=== PATIENT | female | born 1970 | race Caucasian/White ===

== ENCOUNTER 2024-05-12 15:08 | Outpatient (AMB) | payer OTHER, SELFPAY ==
[2024-05-12 15:24] VITALS: BP 140/90; PULSE 98; O2SAT 100; BMI 37.4
--- NOTE | 2024-05-12 15:24 | HO.NEPHOV_ITS ---
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 She was diagnosed with hypertension at the age of 45.. She has history of left hearing loss. She has been on losartan as well as amlodipine. Her blood pressure continues to be labile. She denies any uncontrolled thyroid disorders, hypokalemia, renal dysfunction, palpitation, orthostatic drop in blood pressure, proteinuria, microscopic hematuria, history of diagnosed sleep apnea. She claims to be compliant with her medications. Her exercise is limited. She goes on and off weight watchers. She has no history of any peripheral arterial disease, renal artery stenosis, carotid stenosis, coronary artery disease, congestive heart failure, CVA. She denies any chest pain, shortness of breath, pedal edema. She has a normal diet. She does not have any headache, visual disturbance, weakness. There were no other new active complaints at the time of this office visit. [facility] Medical History (Updated 05/12/24 @ 16:01 by Pedro Abdul MD) Venous insufficiency Hearing loss in left ear Colon polyp Essential (primary) hypertension Surgical History History of Achilles tendon repair H/O colonoscopy Family History Mother Hypertension Father Diabetes mellitus Hypertension Social History Alcohol intake: current Patient Tobacco Use Status: Never used Tobacco Review of Systems Const All systems reviewed & are unremarkable except as noted in HPI and below Physical Exam Vital Signs: Last Vital Signs Pulse 98 05/12/24 15:24 BP 140/90 H 05/12/24 15:24 Pulse Ox 100 05/12/24 15:24 Oxygen Delivery Method Room Air 05/12/24 15:24 BMI result Body Mass Index 37.4 Const General: comfortable and no acute distress Orientation/consciousness: patient oriented x3 HEENT Head: Yes normocephalic Mouth: Normal oral and palatal mucosa present Eyes EOM: EOMs intact bilaterally Neck Neck: Yes supple Resp Auscultation: clear to auscultation bilaterally Cardio Jugular venous distension: no JVD Rate: regular rate GI Palpation (GI): Soft to palpation Auscultation: normal bowel sounds General: Yes no CVA tenderness Back/Spine/Pelvis Back: no CVA tenderness Skin General skin exam: no rashes or lesions noted Neuro General: patient oriented x3 and moves all extremities Extrem General: Yes no pedal edema Results Reviewed Nephrology Results: No Data to Display Assessment & Plan Assessment & Plan (1) Essential (primary) hypertension: Code(s): I10 - Essential (primary) hypertension Category: Medical Plan Briana was diagnosed with hypertension at the age of 45. She has no renal dysfu nction or history of hypokalemia. She claims to be compliant with the medications. She is currently on amlodipine 5 mg daily as well as losartan 50 mg b.i.d. Her blood pressure is still not at goal. I ordered renin, aldosterone, cortisol, thyroid function and metanephrines. I may do a Doppler of her renal arteries as well as 24 hour ambulatory blood pressure monitor based on evolving data. I plan to optimize her medications in the next subsequent visits. She will benefit from low-sodium diet and lifestyle modifications. She is not known to have any proteinuria, retinopathy, left ventricular hypertrophy, renal or cardiac dysfunction. All these have been explained in detail. Answered all questions. Further management is pending evolving data. Orders: Orders Aldosterone 05/12/24 I10 - Essential (primary) hypertension Aldost/Renin 05/12/24 I10 - Essential (primary) hypertension Renin 05/12/24 I10 - Essential (primary) hypertension Cortisol Random 05/12/24 I10 - Essential (primary) hypertension Metanephrines, Plasma 05/12/24 I10 - Essential (primary) hypertension TSH reflex Free T4 05/12/24 I10 - Essential (primary) hypertension Coding Level of Care Code New Pt Level 4 (88279) Diagnoses Essential (primary) hypertension I10
== END 2024-05-12 16:08 | disposition home or self-care (01) ==
PROVIDERS: PCP Family Medicine; Visit Provider Internal Medicine Nephrology
DX: I10 Essential (primary) hypertension (principal)
CPT/HCPCS: 99204

== ENCOUNTER → 2024-05-12 15:08 | Outpatient (BNVA) | payer OTHER, SELFPAY | PROVIDERS: PCP Family Medicine; Visit Provider Internal Medicine Nephrology ==

== ENCOUNTER 2024-07-02 15:11 | Outpatient (AMB) | payer OTHER, SELFPAY ==
--- NOTE | 2024-07-02 15:48 | HO.NEPHOV_ITS ---
Vital Signs 07/02/24 15:52 Height 5 ft 7 in Weight 239 lb BMI 37.4 BP 140/90 H Blood Pressure Location Rt brachial Position Sitting Pulse 101 H Pulse Source Pulse Oximeter Pulse Oximetry (%) 98 Oxygen Delivery Method Room Air Intake Visit Reasons: 1 month f/u/ Conf Tube Filler Required: No Accompanied by: Self / Same As Patient Allergies ibuprofen Allergy (Verified 07/02/24 15:54) Swelling HPI Comments Details: I had the pleasure of seeing Briana in follow up for labile hypertension. She was diagnosed with hypertension at the age of 45.. She has history of left hearing loss. She has been on losartan as well as amlodipine. Her blood pressure continues to be labile. She denies any uncontrolled thyroid disorders, hypokalemia, renal dysfunction, palpitation, orthostatic drop in blood pressure, proteinuria, microscopic hematuria, history of diagnosed sleep apnea. She claims to be compliant with her medications. Her exercise is limited. She goes on and off weight watchers. She has no history of any peripheral arterial disease, renal artery stenosis, carotid stenosis, coronary artery disease, congestive heart failure, CVA. She denies any chest pain, shortness of breath, pedal edema. She has a normal diet. She does not have any headache, visual disturbance, weakness. There were no other new active complaints at the time of this office visit. [facility], [facility] Medical History (Updated 05/12/24 @ 16:01 by Pedro Abdul MD) Venous insufficiency Hearing loss in left ear Colon polyp Essential (primary) hypertension Surgical History History of Achilles tendon repair H/O colonoscopy Family History Mother Hypertension Father Diabetes mellitus Hypertension Social History Alcohol intake: current Patient Tobacco Use Status: Never used Tobacco Physical Exam Vital Signs: Last Vital Signs Pulse 101 H 07/02/24 15:52 BP 140/90 H 07/02/24 15:52 Pulse Ox 98 07/02/24 15:52 Oxygen Delivery Method Room Air 07/02/24 15:52 BMI result Body Mass Index 37.4 Const General: comfortable and no acute distress Orientation/consciousness: patient oriented x3 HEENT Head: Yes normocephalic Mouth: Normal oral and palatal mucosa present Eyes EOM: EOMs intact bilaterally Neck Neck: Yes supple Resp Auscultation: clear to auscultation bilaterally Cardio Jugular venous distension: no JVD Rate: regular rate GI Palpation (GI): Soft to palpation Auscultation: normal bowel sounds General: Yes no CVA tenderness Back/Spine/Pelvis Back: no CVA tenderness Skin General skin exam: no rashes or lesions noted Neuro General: patient oriented x3 and moves all extremities Extrem General: Yes no pedal edema Results Reviewed Nephrology Results: No Data to Display Assessment & Plan Assessment & Plan (1) Essential (primary) hypertension: Code(s): I10 - Essential (primary) hypertension Category: Medical Plan Briana was diagnosed with hypertension at the age of 45. She has no renal dysfunction or history of hypokalemia. She claims to be compliant with the medications. She is currently on amlodipine 5 mg daily as well as losartan 50 mg b.i.d. Her blood pressure is still not at goal. W/U including renin, and metanephrines are pending. I may do a Doppler of her renal arteries . I ordered 24 hour ambulatory blood pressure monitor . I plan to optimize her medications in the next subsequent visits. She will benefit from low-sodium diet and lifestyle modifications. She is not known to have any proteinuria, retinopathy, left ventricular hypertrophy, renal or cardiac dysfunction. All these have been explained in detail. Answered all questions. Further management is pending evolving data. Orders: Orders AMB 24 HR B/P Monitor PLACEMENT Today I10 - Essential (primary) hypertension Coding Level of Care Code Est Pt Level 4 (20305) Diagnoses Essential (primary) hypertension I10
[2024-07-02 15:52] VITALS: BP 140/90; PULSE 101; O2SAT 98; BMI 37.4
== END 2024-07-02 16:20 | disposition home or self-care (01) ==
PROVIDERS: PCP Family Medicine; Visit Provider Internal Medicine Nephrology
DX: I10 Essential (primary) hypertension (principal)
CPT/HCPCS: 99214

== ENCOUNTER → 2024-07-02 15:11 | Outpatient (BNVA) | payer OTHER, SELFPAY | PROVIDERS: PCP Family Medicine; Visit Provider Internal Medicine Nephrology ==

== ENCOUNTER → 2024-07-16 08:57 | Outpatient (BNVA) | payer OTHER, SELFPAY | PROVIDERS: PCP Family Medicine; Visit Provider Internal Medicine Nephrology ==

== ENCOUNTER → 2024-07-17 09:05 | Outpatient (BNVA) | payer OTHER, SELFPAY | PROVIDERS: PCP Family Medicine; Visit Provider Internal Medicine Nephrology ==

== ENCOUNTER 2024-07-23 11:25 | Outpatient (AMB) | payer OTHER, SELFPAY ==
--- NOTE | 2024-07-23 11:32 | HO.NEPHOV_ITS ---
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 She was diagnosed with hypertension at the age of 45.. She has history of left hearing loss. She has been on losartan as well as amlodipine. Her blood pressure continues to be labile but better. She denies any uncontrolled thyroid disorders, hypokalemia, renal dysfunction, palpitation, orthostatic drop in blood pressure, proteinuria, microscopic hematuria, history of diagnosed sleep apnea. She claims to be compliant with her medications. Her exercise is limited. She goes on and off weight watchers. She has no history of any peripheral arterial disease, renal artery stenosis, carotid stenosis, coronary artery disease, congestive heart failure, CVA. She denies any chest pain, shortness of breath, pedal edema. She has a normal diet. She does not have any headache, visual disturbance, weakness. She had 24 hour BPM which showed reasonably controlled BP but not optimal. She is concerned about edema with Amlodipine. She is going to see a criminal judge next week. There were no other new active complaints at the time of this office visit. [facility] Medical History (Updated 05/12/24 @ 16:01 by Pedro Abdul MD) Venous insufficiency Hearing loss in left ear Colon polyp Essential (primary) hypertension Surgical History History of Achilles tendon repair H/O colonoscopy Family History Mother Hypertension Father Diabetes mellitus Hypertension Social History Alcohol intake: current Patient Tobacco Use Status: Never used Tobacco Review of Systems Const All systems reviewed & are unremarkable except as noted in HPI and below Physical Exam Vital Signs: Last Vital Signs Pulse 92 07/23/24 11:33 BP 130/90 H 07/23/24 11:33 Pulse Ox 99 07/23/24 11:33 Oxygen Delivery Method Room Air 07/23/24 11:33 BMI result Body Mass Index 37.5 Const General: comfortable and no acute distress Orientation/consciousness: patient oriented x3 HEENT Head: Yes normocephalic Mouth: Normal oral and palatal mucosa present Eyes EOM: EOMs intact bilaterally Neck Neck: Yes supple Resp Auscultation: clear to auscultation bilaterally Cardio Jugular venous distension: no JVD Rate: regular rate GI Palpation (GI): Soft to palpation Auscultation: normal bowel sounds General: Yes no CVA tenderness Back/Spine/Pelvis Back: no CVA tenderness Skin General skin exam: no rashes or lesions noted Neuro General: patient oriented x3 and moves all extremities Extrem General: Yes no pedal edema Results Reviewed Nephrology Results: No Data to Display Assessment & Plan Assessment & Plan (1) Essential (primary) hypertension: Code(s): I10 - Essential (primary) hypertension Category: Medical Plan Briana was diagnosed with hypertension at the age of 45. She has no renal dysfunction or history of hypokalemia. She claims to be compliant with the medications. Her 24 hour BPM results were reviewed. She wanted to try ACEI . She is currently on amlodipine 5 mg daily as well as losartan 50 mg b.i.d. I switched her to lisinopril 40 mg daily along with Chlorthalidone 25 mg daily. W/U including renin, and metanephrines were reviewed. I plan to optimize her medications in the next subsequent visits. She will benefit from low-sodium diet and lifestyle modifications. She is not known to have any proteinuria, retinopathy, left ventricular hypertrophy, renal or cardiac dysfunction. All these have been explained in detail. Answered all questions. Further management is pending evolving data Medications: New lisinopril 40 mg PO DAILY 90 days 90 tabs 1RF chlorthalidone Discontinued Amlodipine 25 mg PO DAILY 90 days 90 tabs 1RF Coding Level of Care Code Est Pt Level 4 (77805) Diagnoses Essential (primary) hypertension I10
[2024-07-23 11:33] VITALS: BP 130/90; PULSE 92; O2SAT 99; BMI 37.5
== END 2024-07-23 12:11 | disposition home or self-care (01) ==
PROVIDERS: PCP Family Medicine; Visit Provider Internal Medicine Nephrology
DX: I10 Essential (primary) hypertension (principal)
CPT/HCPCS: 93790; 99214

== ENCOUNTER → 2024-07-23 11:25 | Outpatient (BNVA) | payer OTHER, SELFPAY | PROVIDERS: PCP Family Medicine; Visit Provider Internal Medicine Nephrology ==

== ENCOUNTER 2024-10-29 15:29 | Outpatient (AMB) | payer OTHER, SELFPAY ==
--- NOTE | 2024-10-29 16:02 | HO.NEPHOV ---
Vital Signs 10/29/24 16:03 Height 5 ft 7 in Weight 227 lb 6 oz BMI 35.6 BP 102/70 Blood Pressure Location Lt brachial Position Sitting Pulse 97 Pulse Source Pulse Oximeter Pulse Oximetry (%) 99 Oxygen Delivery Method Room Air Intake Visit Reasons: 3 mon follow up -Conf Aviation Manager Required: No Accompanied by: Self / Same As Patient Allergies ibuprofen Allergy (Verified 10/29/24 16:03) Swelling HPI Comments Details: Briana was seen in follow up for hypertension. She was diagnosed with hypertension at the age of 45.. She has history of left hearing loss. She denies any uncontrolled thyroid disorders, hypokalemia, renal dysfunction, palpitation, orthostatic drop in blood pressure, proteinuria, microscopic hematuria, history of diagnosed sleep apnea. She has no history of any peripheral arterial disease, renal artery stenosis, carotid stenosis, coronary artery disease, congestive heart failure, CVA. She denies any chest pain, shortness of breath, pedal edema. She has a normal diet. She does not have any headache, visual disturbance, weakness. She has seen a fleet service manager & is exercising as well & is successful in losing some weight. With lisinopril and Chlorthalidone, she had episodes of very low BP's intermittently . She stopped her Chlorthalidone at that time but has been taking it only intermittently. There were no other new active complaints at the time of this office visit [facility] Medical History (Updated 05/12/24 @ 16:01 by Pedro Abdul MD) Venous insufficiency Hearing loss in left ear Colon polyp Essential (primary) hypertension Surgical History History of Achilles tendon repair H/O colonoscopy Family History Mother Hypertension Father Diabetes mellitus Hypertension Social History Alcohol intake: current Patient Tobacco Use Status: Never used Tobacco Review of Systems Const All systems reviewed & are unremarkable except as noted in HPI and below Physical Exam Vital Signs: Last Vital Signs Pulse 97 10/29/24 16:03 BP 102/70 10/29/24 16:03 Pulse Ox 99 10/29/24 16:03 Oxygen Delivery Method Room Air 10/29/24 16:03 BMI result Body Mass Index 35.6 Const General: comfortable and no acute distress Orientation/consciousness: patient oriented x3 HEENT Head: Yes normocephalic Mouth: Normal oral and palatal mucosa present Eyes EOM: EOMs intact bilaterally Neck Neck: Yes supple Resp Auscultation: clear to auscultation bilaterally Cardio Jugular venous distension: no JVD Rate: regular rate GI Palpation (GI): Soft to palpation Auscultation: normal bowel sounds General: Yes no CVA tenderness Back/Spine/Pelvis Back: no CVA tenderness Skin General skin exam: no rashes or lesions noted Neuro General: patient oriented x3 and moves all extremities Extrem General: Yes no pedal edema Results Reviewed Nephrology Results: No Data to Display Assessment & Plan Assessment & Plan (1) Essential (primary) hypertension: Code(s): I10 - Essential (primary) hypertension Category: Medical Plan Brinaa was diagnosed with hypertension at the age of 45. She has no renal dysfunction or history of hypokalemia. She claims to be compliant with the medications. I asked her to take lisinopril 20 mg twice daily along with Chlorthalidone 25 mg daily in the morning. I plan to cut back on her ACEI if she still gets low BP's while she is losing weight and keeping up with life style modifications. She is not known to have any proteinuria, retinopathy, left ventricular hypertrophy, renal or cardiac dysfunction. All these have been explained in detail. Answered all questions. Orders: Orders Electrolytes 1 Month I10 - Essential (primary) hypertension Creatinine 1 Month I10 - Essential (primary) hypertension Calcium 1 Month I10 - Essential (primary) hypertension Blood Urea Nitrogen 1 Month I10 - Essential (primary) hypertension Coding Level of Care Code Est Pt Level 4 (21342) Diagnoses Essential (primary) hypertension I10
[2024-10-29 16:03] VITALS: BP 102/70; PULSE 97; O2SAT 99; BMI 35.6
== END 2024-10-29 16:23 | disposition home or self-care (01) ==
PROVIDERS: PCP Family Medicine; Visit Provider Internal Medicine Nephrology
DX: I10 Essential (primary) hypertension (principal)
CPT/HCPCS: 99214

== ENCOUNTER → 2024-10-29 15:29 | Outpatient (BNVA) | payer OTHER, SELFPAY | PROVIDERS: PCP Family Medicine; Visit Provider Internal Medicine Nephrology ==

== ENCOUNTER 2024-11-20 11:46 | Outpatient (REF) | payer OTHER, SELFPAY ==
[2024-11-20 14:37] LABS: Anion Gap 11 (12-20); Blood Urea Nitrogen 12 mg/dL (9-16); Calcium 9.8 mg/dL (8.4-10.2); Carbon Dioxide 28 mmol/L (22-29); Chloride 105 mmol/L (96-108); Estimated Glomerular Filt Rate > 60; Potassium 3.9 mmol/L (3.3-5.1); Sodium 140 mmol/L (135-145)
== END 2024-11-20 11:47 | disposition home or self-care (01) ==
LOC: HO.WFDLDS 11:46
PROVIDERS: Visit Provider Internal Medicine Nephrology
DX: I10 Essential (primary) hypertension (principal)
CPT/HCPCS: 36415; 80051; 82310; 82565; 84520

== ENCOUNTER 2024-11-23 09:28 | Outpatient (AMB) | payer OTHER, SELFPAY ==
--- NOTE | 2024-11-23 09:30 | HO.NEPHOV_ITS ---
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 She was diagnosed with hypertension at the age of 45.. She has history of left hearing loss. She denies any uncontrolled thyroid disorders, hypokalemia, renal dysfunction, palpitation, orthostatic drop in blood pressure, proteinuria, microscopic hematuria, history of diagnosed sleep apnea. She has no history of any peripheral arterial disease, renal artery stenosis, carotid stenosis, coronary artery disease, congestive heart failure, CVA. She denies any chest pain, shortness of breath, pedal edema. She has a normal diet. She does not have any headache, visual disturbance, weakness. She has seen a campus director & is exercising as well & is successful in losing some weight. With lisinopril and Chlorthalidone, she had episodes of very low BP's intermittently . She stopped her Chlorthalidone at that time but has been taking it only intermittently. There were no other new active complaints at the time of this office visit COUNT INCLUDES [facility] Medical History (Updated 05/12/24 @ 16:01 by Pedro Abdul MD) Venous insufficiency Hearing loss in left ear Colon polyp Essential (primary) hypertension Surgical History History of Achilles tendon repair H/O colonoscopy Family History Mother Hypertension Father Diabetes mellitus Hypertension Social History Alcohol intake: current Patient Tobacco Use Status: Never used Tobacco Review of Systems Const All systems reviewed & are unremarkable except as noted in HPI and below Physical Exam Vital Signs: Last Vital Signs Pulse 80 11/23/24 09:31 BP 120/70 11/23/24 09:31 Pulse Ox 100 11/23/24 09:31 Oxygen Delivery Method Room Air 11/23/24 09:31 BMI result Body Mass Index 35.8 Const General: comfortable and no acute distress Orientation/consciousness: patient oriented x3 HEENT Head: Yes normocephalic Mouth: Normal oral and palatal mucosa present Eyes EOM: EOMs intact bilaterally Neck Neck: Yes supple Resp Auscultation: clear to auscultation bilaterally Cardio Jugular venous distension: no JVD Rate: regular rate GI Palpation (GI): Soft to palpation Auscultation: normal bowel sounds General: Yes no CVA tenderness Back/Spine/Pelvis Back: no CVA tenderness Skin General skin exam: no rashes or lesions noted Neuro General: patient oriented x3 and moves all extremities Extrem General: Yes no pedal edema Results Reviewed Nephrology Results: Sodium 140 mmol/L (135-145) 11/20/24 Potassium 3.9 mmol/L (3.3-5.1) 11/20/24 Chloride 105 mmol/L (96-108) 11/20/24 Carbon Dioxide 28 mmol/L (22-29) 11/20/24 BUN 12 mg/dL (9-16) 11/20/24 Creatinine 0.80 mg/dL (0.5-1.4) 11/20/24 Calcium 9.8 mg/dL (8.4-10.2) 11/20/24 Assessment & Plan Assessment & Plan (1) Essential (primary) hypertension: Code(s): I10 - Essential (primary) hypertension Category: Medical Plan Briana was diagnosed with hypertension at the age of 45. She has no renal dysfunction or history of hypokalemia. She claims to be compliant with the medications. I asked her to take lisinopril 10 mg twice daily along with Chlorthalidone 25 mg daily in the morning. I plan to cut back on her ACEI further if she still gets low BP's while she is losing weight and keeping up with life style modifications. She is not known to have any proteinuria, retinopathy, left ventricular hypertrophy, renal or cardiac dysfunction. All these have been explained in detail. Answered all questions. Coding Level of Care Code Est Pt Level 4 (00844) Diagnoses Essential (primary) hypertension I10
[2024-11-23 09:31] VITALS: BP 120/70; PULSE 80; O2SAT 100; BMI 35.8
== END 2024-11-23 09:48 | disposition home or self-care (01) ==
PROVIDERS: PCP Family Medicine; Visit Provider Internal Medicine Nephrology
DX: I10 Essential (primary) hypertension (principal)
CPT/HCPCS: 99214

== ENCOUNTER → 2024-11-23 09:28 | Outpatient (BNVA) | payer OTHER, SELFPAY | PROVIDERS: PCP Family Medicine; Visit Provider Internal Medicine Nephrology ==

== ENCOUNTER 2025-03-15 12:17 | Outpatient (AMB) | payer OTHER, SELFPAY ==
--- NOTE | 2025-03-15 12:21 | HO.NEPHOV ---
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 She was diagnosed with hypertension at the age of 45. She has history of left hearing loss. She denies any uncontrolled thyroid disorders, hypokalemia, renal dysfunction, palpitation, orthostatic drop in blood pressure, proteinuria, microscopic hematuria, history of diagnosed sleep apnea. She has no history of any peripheral arterial disease, renal artery stenosis, carotid stenosis, coronary artery disease, congestive heart failure, CVA. She denies any chest pain, shortness of breath, pedal edema. She has a normal diet. She does not have any headache, visual disturbance, weakness. She has seen a reshipping clerk & is exercising as well & is successful in losing some weight. There were no other new active complaints at the time of this office visit REPLACED BY [facility] Medical History (Updated 05/12/24 @ 16:01 by Pedro Abdul MD) Venous insufficiency Hearing loss in left ear Colon polyp Essential (primary) hypertension Surgical History History of Achilles tendon repair H/O colonoscopy Family History Mother Hypertension Father Diabetes mellitus Hypertension Social History Alcohol intake: current Patient Tobacco Use Status: Never used Tobacco Review of Systems Const All systems reviewed & are unremarkable except as noted in HPI and below Physical Exam Vital Signs: Last Vital Signs Pulse 92 03/15/25 12:22 BP 114/70 03/15/25 12:22 Pulse Ox 100 03/15/25 12:22 Oxygen Delivery Method Room Air 03/15/25 12:22 BMI result Body Mass Index 34.5 Const General: comfortable and no acute distress Orientation/consciousness: patient oriented x3 HEENT Head: Yes normocephalic Mouth: Normal oral and palatal mucosa present Eyes EOM: EOMs intact bilaterally Neck Neck: Yes supple Resp Auscultation: clear to auscultation bilaterally Cardio Jugular venous distension: no JVD Rate: regular rate GI Palpation (GI): Soft to palpation Auscultation: normal bowel sounds General: Yes no CVA tenderness Back/Spine/Pelvis Back: no CVA tenderness Skin General skin exam: no rashes or lesions noted Neuro General: patient oriented x3 and moves all extremities Extrem General: Yes no pedal edema Results Reviewed Nephrology Results: Sodium 140 mmol/L (135-145) 11/20/24 Potassium 3.9 mmol/L (3.3-5.1) 11/20/24 Chloride 105 mmol/L (96-108) 11/20/24 Carbon Dioxide 28 mmol/L (22-29) 11/20/24 BUN 12 mg/dL (9-16) 11/20/24 Creatinine 0.80 mg/dL (0.5-1.4) 11/20/24 Calcium 9.8 mg/dL (8.4-10.2) 11/20/24 Assessment & Plan Assessment & Plan (1) Essential (primary) hypertension: Code(s): I10 - Essential (primary) hypertension Category: Medical Plan Briana was diagnosed with hypertension at the age of 45. She has no renal dysfunction or history of hypokalemia. She claims to be compliant with the medications. I asked her to continue lisinopril 10 mg twice daily along with Chlorthalidone 25 mg daily in the morning. I plan to cut back on her chlorthalidone further if she still gets low BP's while she is losing weight and keeping up with life style modifications. She is not known to have any proteinuria, retinopathy, left ventricular hypertrophy, renal or cardiac dysfunction. All these have been explained in detail. Answered all questions Orders: Orders Blood Urea Nitrogen 6 Months I10 - Essential (primary) hypertension Calcium 6 Months I10 - Essential (primary) hypertension Creatinine 6 Months I10 - Essential (primary) hypertension Electrolytes 6 Months I10 - Essential (primary) hypertension Coding Level of Care Code Est Pt Level 4 (16033) Diagnoses Essential (primary) hypertension I10
[2025-03-15 12:22] VITALS: BP 114/70; PULSE 92; O2SAT 100; BMI 34.5
== END 2025-03-15 12:36 | disposition home or self-care (01) ==
LOC: HO.HKA 12:17
PROVIDERS: PCP Family Medicine; Visit Provider Internal Medicine Nephrology
DX: I10 Essential (primary) hypertension (principal)
CPT/HCPCS: 99214

== ENCOUNTER 2025-10-13 14:07 | Outpatient (REF) | payer OTHER, SELFPAY ==
--- OUTSIDE RECORDS SUMMARY | 2025-10-13 17:08 | XMS_ITS | Data Portability ---
Author Organization [place] - [facility], Allergy Address [address] [address] Care Team Providers Care Circle Saw Operator Name Role Phone CRISTA POPE Primary Care Provider [phone] Assessment No assessment recorded. Plan of Treatment Reminders Order Date Submit Date Provider Last Modified By Organization Details Last Modified Time Details Appointments None record ed. Lab None record ed. Referral None record ed. Procedures None record ed. Surgeries None record ed. Imaging None record ed. Medication Orders None record ed. Patient TargetsNo targets recorded. Patient InstructionsNo instructions recorded. Reason for Referral None Reported. Problems Name Problem SNOMED Code Status Onset Date Resolution Date Notes Provider Name and Address Organization Details Recorded Time Sudden idiopathi c hearing loss 234310173 Active 2017 Sudden idiopathi c hearing loss, left ear; Note: Date Diagnosed : 09/19/2018 11:29 AM (H91.22) Not Available [facility] 4 02:25:30 Dizziness and giddiness 955421673 Active 2017 Dizziness and giddiness ; Note: Date Diagnosed : 09/19/2018 11:29 AM (R42) Not Available [facility] 4 02:25:17 Sensorine ural hearing loss 57269663 Active 2017 Sensorine ural hearing loss, unilatera l, left ear, with unrestric jp hearing on the contralat eral side; Note: Date Diagnosed : 09/19/2018 11:29 AM (H90.42) Not Available [facility] 4 02:25:17 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 - [facility] 5 15:27:58 Drug therapy finding 466597726 Active 2024 RANJEET GRAHAM MD [address] [place] [address], [place], [address] , [facility] - [facility] 5 15:28:04 Swelling of salivary gland 365517273 Active 2024 RANJEET GRAHAM MD [address] [place] [address], [place], [address] , [facility] 5 15:30:04 Problem Notes None recorded. Procedures Surgical History Date Name Laterality Status Provider Name and Address Organization Details Recorded Time 04/16/2025 FFL_RE completed RANJEET GRAHAM MD [address] [place] [address],[place] [address], [place], [address], [facility] - [facility] 04/16/2025 15:20:41 Imaging Results None recorded. Procedure Notes None recorded. Medical Equipment None Reported. Allergies Allergen ID Allergen Name Allergen Category Reaction Reaction Severity Criticality Documentation Date Start Date Code Code System Note Provider Name and Address Organization Details Recorded Time 74830 ibuprofen medicatio n other Not available Not available 03/31/2024 5640 RxNorm React ion: unkno wn, chadwickpe flip d;; Not Available [facility] 4 00:57:42 Medications Name Sig Start Date Stop Date Status Note LastModified by Organization Details LastModified Time losartan 50 mg tablet TAKE 1 TABLET BY MOUTH TWICE A DAY active Not Available Not Available No t Available prednison e 10 mg tablet 2017 active Medicati on ID: [id number] P rescribe d By Name: Júnior Faye nd Name: predniso ne Send Method: E-Prescr ibed Sub s Allowed: subs OK Specmichelle al Instruct ion: 6 tabs daily for 9 days then taper As directed Medicat ionGener icName: predniso ne Not Available Not Available Not Available Ativan 1 mg tablet 1 tablet by mouth 2017 active Medicati on ID: [id number] D uration Value: 2 Prescri bed By Name: Júnior Faye nd Name: Ativan S end Method: E-Prescr ibed Sub s Allowed: subs ROBE Specmichelle al Instruct ion: Take 1 hour prior to procedur e Medica tionGene ricName: Ativan Not Available Not Available Not Available chlorthal idone 25 mg tablet TAKE 1 TABLET BY MOUTH DAILY active Not Available Not Available No t Available amlodipin e 5 mg tablet TAKE 1 TABLET BY MOUTH EVERY DAY active Not Available Not Available No t Available meclizine 25 mg tablet 2017 active Medicati on ID: [id number] D uration Value: 10 Brand Name: meclizin e Send Method: E-Prescr ibed Sub s Allowed: subs ROBE Speci al Instruct ion: TAKE 1 TABLET BY MOUTH THREE TIMES A DAY NEEDED Jf Emanuelamoric Name: meclizin e Not Available Not Available Not Available lisinopri l 10 mg tablet TAKE 1 TABLET BY MOUTH TWICE A DAY active Not Available Not Available No t Available lisinopri l 40 mg tablet TAKE 1 TABLET BY MOUTH DAILY active Not Available Not Available No t Available losartan 100 mg tablet 2017 active Medicati on ID: [id number] D uration Value: 30 Brand Name: losartan Send Method: E-Prescr ibed Sub s Allowed: subs OK Medic ationGen ericName : losartan Not Available Not Available Not Available amoxicill in 875 mg-potass ium clavulana te 125 mg tablet 09/19 completed Medicati on ID: [id number] D uration Value: 7 Brand Name: amoxicil baljeet-pot clavulan ate Send Method: E-Prescr ibed Sub s Allowed: subs OK Medic ationGen ericName : amoxicil baljeet-pot clavulan ate Not Available Not Available Not Available Wegovy 2.4 mg/0.75 mL subcutane ous pen injector INJECT 2.4 MG SUBCUTAN EOUSLY EVERY WEEK IN THE ABDOMEN, THIGH, OR UPPER ARM active Not Available Not Available No t Available Wegovy 1.7 mg/0.75 mL subcutane ous pen injector INJECT 1.7 MG SUBCUTAN EOUSLY EVERY WEEK active Not Available Not Available No t Available Wegovy 1 mg/0.5 mL subcutane ous pen injector INJECT 1 MG SUBCUTAN EOUSLY INTO THE ABDOMEN, THIGH, OR UPPER ARM EVERY WEEK active Not Available Not Available No t Available Wegovy 0.25 mg/0.5 mL subcutane ous pen injector INJECT 0.25 MG SUBCUTAN EOUSLY EVERY WEEK FOR 4 WEEKS*IN THE ABDOMEN, THIGH, OR UPPER ARM active Not Available Not Available No t Available Wegovy 0.5 mg/0.5 mL subcutane ous pen injector INJECT 0.5 MG SUBCUTAN EOUSLY EVERY WEEK FOR 4 WEEKS*IN THE ABDOMEN, THIGH, OR UPPER ARM active Not Available Not Available No t Available Zepbound 5 mg/0.5 mL subcutane ous pen injector INJECT 1 PEN SUBCUTAN EOUSLY ONCE WEEKLY ROTATING INJECTIO N SITES active Not Available Not Available No t Available Zepbound 2.5 mg/0.5 mL subcutane ous pen injector INJECT 2.5 MG SUBCUTAN EOUSLY EVERY WEEK, ROTATE INJECTIO N SITES active Not Available Not Available No t Available Vitals None Recorded Social History None recorded. Functional Status None recorded. Mental Status None recorded. Family History Nothing Reported. Medical History No medical history recorded. Gynecological HistoryNo gynecological history recorded. Obstetrics History GPAL:G 0 P 0 0 0 0 Past Encounters Encounter ID Performer Location Encounter Start Date Encounter Closed Date Diagnosis/Indication Diagnosis SNOMED-CT Code Diagnosis ICD10 Code Diagnosis IMO Codes Diagnosis Note [id number] RANJEET GRAHAM MD [facility] on [address] [place] [address] 04/16/2025 14:43:19 04/16/2025 15:27:00 Acute sialoadenitis [id number] K11.21 7497309 see below Drug therapy finding 309 [id number] T88.7XXA 1213765 The timing seems to coincide with when she began Zepbound. I discussed the option of stopping the medication . I also discussed improved hydration for her salivary glands. I did not see any pathology on laryngosco py and did not feel any on exam. Her submandibu lar glands may be mildly enlarged. I gave reassuranc e. I told her that this seems not like an allergy to the medication as this has been very gradual and chronic over the past 3 weeks rather than acute. I asked her to call for follow-up if the symptoms worsen. She could also discuss with her doctor stopping the Zepbound. Swelling o f salivary gland [id number] R60.0 204992 see above Health Concerns Section Related Observation LastModified by Organization Detai ls LastModified Time None Recorded Concern Status LastModified by Organization Details LastModified Time None Recorded Advance Directives Directive None Recorded Payers Insurance Date Sequence Insurance Name Policy Number Policy Viera Covered Member ID Viera Member ID Guarantor Name 05/26/2025 1 [facility] [id number] Briana Jeffries [id number] 1 [id number] Briana Jeffries Notes Date Note Type Note Provider Name and Address Organization Details Recorded Time 04/16/2025 text/html ROS as noted in the HPI 3 weeks ago she noted some discomfort when sticking her tongue out. This only occurs when she sticks her tongue out. Does not happen when eating. Feels a tightness in her floor of mouth. She is not sensitive to certain foods. She began Zepbound for weight loss 4 weeks ago. She doesn't smoke. RANJEET GRAHAM MD [address] [place] [address], [place], [address], [facility] - [facility] 04/16/2025 15:30:23 OBGyn Episode No OBEpisode recorded.
[2025-10-13 18:31] LABS: Anion Gap 13 (12-20); Blood Urea Nitrogen 20 mg/dL (9-16); Calcium 9.6 mg/dL (8.4-10.2); Carbon Dioxide 28 mmol/L (22-29); Chloride 100 mmol/L (96-108); Estimated Glomerular Filt Rate 58; Potassium 3.4 mmol/L (3.3-5.1); Sodium 138 mmol/L (135-145)
== END 2025-10-13 14:08 | disposition home or self-care (01) ==
LOC: HO.WFDLDS 14:07
PROVIDERS: Visit Provider Internal Medicine Nephrology
DX: I10 Essential (primary) hypertension (principal)
CPT/HCPCS: 36415; 80051; 82310; 82565; 84520

== ENCOUNTER 2025-10-20 12:14 | Outpatient (AMB) | payer OTHER, SELFPAY ==
--- NOTE | 2025-10-20 12:28 | HO.NEPHOV ---
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 She was diagnosed with hypertension at the age of 45. She has history of left hearing loss. She denies any uncontrolled thyroid disorders, hypokalemia, renal dysfunction, palpitation, orthostatic drop in blood pressure, proteinuria, microscopic hematuria, history of diagnosed sleep apnea. She has no history of any peripheral arterial disease, renal artery stenosis, carotid stenosis, coronary artery disease, congestive heart failure, CVA. She denies any chest pain, shortness of breath, pedal edema. She has a normal diet. She does not have any headache, visual disturbance, weakness. 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 There were no other new active complaints at the time of this office visit [facility] Medical History (Updated 05/12/24 @ 16:01 by Pedro Abdul MD) Venous insufficiency Hearing loss in left ear Colon polyp Essential (primary) hypertension Surgical History History of Achilles tendon repair H/O colonoscopy Family History Mother Hypertension Father Diabetes mellitus Hypertension Social History Alcohol intake: current Patient Tobacco Use Status: Never used Tobacco Review of Systems Const All systems reviewed & are unremarkable except as noted in HPI and below Physical Exam Vital Signs: Last Vital Signs Pulse 101 H 10/20/25 12:29 BP 102/80 10/20/25 12:29 Pulse Ox 99 10/20/25 12:29 Oxygen Delivery Method Room Air 10/20/25 12:29 BMI result Body Mass Index 34.6 Const General: comfortable and no acute distress Orientation/consciousness: patient oriented x3 HEENT Head: Yes normocephalic Mouth: Normal oral and palatal mucosa present Eyes EOM: EOMs intact bilaterally Neck Neck: Yes supple Resp Auscultation: clear to auscultation bilaterally Cardio Jugular venous distension: no JVD Rate: regular rate GI Palpation (GI): Soft to palpation Auscultation: normal bowel sounds General: Yes no CVA tenderness Back/Spine/Pelvis Back: no CVA tenderness Skin General skin exam: no rashes or lesions noted Neuro General: patient oriented x3 and moves all extremities Extrem General: Yes no pedal edema Results Reviewed Nephrology Results: Sodium, (135-145) 138 mmol/L 10/13/25 Potassium, (3.3-5.1) 3.4 mmol/L 10/13/25 Chloride, (96-108) 100 mmol/L 10/13/25 Carbon Dioxide, (22-29) 28 mmol/L 10/13/25 BUN, (9-16) 20 mg/dL H 10/13/25 Creatinine, (0.5-1.4) 1.00 mg/dL 10/13/25 Calcium, (8.4-10.2) 9.6 mg/dL 10/13/25 Assessment & Plan Assessment & Plan (1) Essential (primary) hypertension: Code(s): I10 - Essential (primary) hypertension Category: Medical Plan Briana was diagnosed with hypertension at the age of 45. She has no renal dysfunction or history of hypokalemia. She claims to be compliant with the medications. I asked her to continue lisinopril 10 mg twice daily . I reduced her Chlorthalidone to 12.5 mg daily in the morning( BP has been running a bit low). I plan to cut back on her chlorthalidone further if she still gets low BP's while she is losing weight and keeping up with life style modifications. She is not known to have any proteinuria, retinopathy, left ventricular hypertrophy, renal or cardiac dysfunction. All these have been explained in detail. Answered all questions Medications: Changed From chlorthalidone 25 mg PO DAILY 90 tabs 4RF To chlorthalidone 12.5 mg PO DAILY 90 tabs 4RF 90 days Coding Level of Care Code Est Pt Level 4 (62574) Diagnoses Essential (primary) hypertension I10
[2025-10-20 12:29] VITALS: BP 102/80; PULSE 101; O2SAT 99; BMI 34.6
--- OUTSIDE RECORDS SUMMARY | 2025-10-20 14:32 | XMS_ITS | Data Portability ---
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 Plan of Treatment [...] Recorded Time Sudden idiopathi c hearing loss 623162206 Active 2017 Sudden idiopathi c hearing loss, left ear; Note: Date Diagnosed : 09/19/2018 11:29 AM (H91.22) Not Available [facility] 4 02:25:30 Dizziness and giddiness 482372983 Active 2017 Dizziness and giddiness ; Note: Date Diagnosed : 09/19/2018 11:29 AM (R42) Not Available [facility] 4 02:25:17 Sensorine ural hearing loss 53103241 Active 2017 Sensorine ural hearing loss, unilatera l, left ear, with unrestric jp hearing on the contralat eral side; Note: Date Diagnosed : 09/19/2018 11:29 AM (H90.42) Not Available [facility] 4 02:25:17 Geographi c tongue 39174250 Active 2021 Geographi c tongue; Note: Date Diagnosed : 07/18/2022 1:30 PM (K14.1) Not Available [facility] 4 02:25:28 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 15573520605 07 Active 2021 Leukoplak ia of oral mucosa, including tongue; Note: Date Diagnosed : 07/18/2022 1:30 PM (K13.21) Not Available [facility] 4 02:25:21 Acute sialoaden itis 253452108 Active 2024 RANJEET GRAHAM MD [address] [place] [address],[place] [address], [place], [address] , [facility] - [facility] 5 15:27:58 Drug therapy finding 392977071 Active 2024 RANJEET GRAHAM MD [address] [place] [address], [place], [address] , [facility] - [facility] 5 15:28:04 Swelling of salivary gland 580334953 Active 2024 ARNJEET GRAHAM MD [address] [place] [address], [facility] [place], [address] , [facility] [place] 5 15:30:04 Problem Notes None recorded. Procedures Surgical History Date Name Laterality Status Provider Name and Address Organization Details Recorded Time 04/16/2025 FFL_RE completed RANJEET GRAHAM MD [address] [place] [address],[place] [address], [place], [address], [facility] - [facility] 04/16/2025 15:20:41 Imaging Results None recorded. Procedure Notes None recorded. Medical Equipment None Reported. Allergies Allergen ID Allergen Name Allergen Category Reaction Reaction Severity Criticality Documentation Date Start Date Code Code System Note Provider Name and Address Organization Details Recorded Time 59703 ibuprofen medicatio n other Not available Not available 03/31/2024 5640 RxNorm React ion: unkno wn, chadwickpe flip d;; Not Available [facility] 4 00:57:42 Medications Name Sig Start Date Stop Date Status Note LastModified by Organization Details LastModified Time losartan 50 mg tablet TAKE 1 TABLET BY MOUTH TWICE A DAY active Not Available Not Available No t Available prednison e 10 mg tablet 2017 active Medicati on ID: [id number] P rescribe d By Name: Júnior Faye nd Name: predniso ne Send Method: E-Prescr ibed Sub s Allowed: subs OK Specmichelle al Instruct ion: 6 tabs daily for 9 days then taper As directed Medicat ionGener icName: predniso ne Not Available Not Available Not Available Ativan 1 mg tablet 1 tablet by mouth 2017 active Medicati on ID: [id number] D uration Value: 2 Prescri bed By [...] mg tablet 2017 active Medicati on ID: [id number] D uration Value: 10 Brand Name: meclizin [...] mg tablet 2017 active Medicati on ID: [id number] D uration Value: 30 Brand Name: losartan Send Method: E-Prescr ibed Sub s Allowed: subs OK Medic ationGen ericName : losartan Not Available Not Available Not Available amoxicill in 875 mg-potass ium clavulana te 125 mg tablet 09/19 completed Medicati on ID: [id number] D uration Value: 7 Brand Name: amoxicil [...] ICD10 Code Diagnosis IMO Codes Diagnosis Note [id number] RANJEET GRAHAM MD [facility] on [address] [place] [address] 04/16/2025 14:43:19 04/16/2025 15:27:00 Acute sialoadenitis 549287907 K11.21 [id number] see below Drug therapy finding 309 187523 T88.7XXA 1298026 The timing seems to coincide with when [...] the Zepbound. Swelling o f salivary gland 636494659 R60.0 335949 see above Health Concerns Section Related Observation LastModified by Organization Detai ls LastModified Time None Recorded Concern Status LastModified by Organization Details LastModified Time None Recorded Advance Directives Directive None Recorded Payers Insurance Date Sequence Insurance Name Policy Number Policy Viera Covered Member ID Viera Member ID Guarantor Name 05/26/2025 1 [facility] [id number] Briana Jeffries [id number] 1 [id number] Briana Jeffries Notes Date Note Type [...] ago. She doesn't smoke. RANJEET GRAHAM MD [address] [place] [address], [place], [address], [facility] - [facility] 04/16/2025 15:30:23 OBGyn Episode No OBEpisode recorded.
--- OUTSIDE RECORDS SUMMARY | 2025-10-20 14:32 | XMS_ITS | Clinical Summary ---
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 Active epinephrine (EPIPEN INJ) Inject 0.3 mg as directed 1 (one) time. Active lisinopriL (PRINIVIL,ZEST RIL) 10 mg tablet Take 1 tablet (10 mg total) by mouth 1 (one) time each day. Active polyethylene glycol (Golytely) 236-22.74-6.74 -5.86 gram solution Take 4L by mouth once for one dose. May substitue any PEG. Starting at 2PM the day before your procedure drink 1 8oz glasses at your own pace until you complete half of the gallon. Finish 2nd half of the gallon at 8PM. 4000 mL 5 Active bisacodyL (DULCOLAX) 5 mg EC tablet Take 2 tablets by mouth right before beginning bowel prep. See instructions provided by the office 2 tablet 5 Active Wegovy 1.7 mg/0.75 mL injection pen INJECT 1 PEN SUBCUTANEOUSLY ONCE A WEEK FOR 4 WEEKS 5 Active cholecalcifero l (VITAMIN D-3) 25 mcg (1,000 unit) tablet Take 1 tablet (1,000 Units total) by mouth 1 (one) time each day. Active Encounters Date Type Department Care Team Description 08/20/2025 Telephone Gastroenterology - [place] [facility] [address] [facility] [address] [place] [address] Bi Palomares MD from Last 3 Months Social History Tobacco Use Types Packs/Day Years Used Date Smoking Tobacco: Never Assessed Comments Unknown Sex and Gender Information Value Date Recorded Sex Assigned at Female 10/16/2025 7:32 AM EST Legal Sex Female 3:33 PM EDT Gender Identity Female 10/16/2025 7:32 AM EST Sexual Orientation Not on file Travel History Travel Start Travel End [place] 10/04/2025 10/08/2025 Plan of Treatment Upcoming Encounters Date Type Department Care Team (Late st Contact Info) Description 10/22/2025 7:30 AM EST Hospital Encounter [facility] Endoscopy [address] [place] [address] Bi Palomares MD [address] [facility] [address] [place] [address] Health Maintenance Due Date Last Done Comments Breast Cancer Screening 1971 DTaP,Tdap,and Td Vaccines (1 - Tdap) 1990 Hepatitis B Vaccines (1 of 3 - 19+ 3-dose series) 1990 Cervical Cancer Screening: P ap Smear 1992 Pneumococcal Vaccine: 50+ Years (1 of 1 - PCV) 2021 Zoster Vaccines (1 of 2) 2021 Depression Screening 11/18/2024 COVID-19 Vaccine (1 - 2024-2 6 season) 2025 Influenza Vaccine (#1) 2025 HIV Screening 08/20/2025 Hepatitis C Screening 08/20/2025 Social Influencers of Health Screening 08/20/2025 Colorectal Cancer Screening: Colonoscopy 08/26/2035 08/26/2025, 08/26/2025 RSV Immunization Adult Patients (1 - 1-dose 75+ series) 2046 HIB Vaccines Aged Out No longer eligi ble based on patient's age to complete this topic HPV Vaccines Aged Out No longer eligi ble based on patient's age to complete this topic Hepatitis A Vaccines Aged Out No long er eligible based on patient's age to complete this topic IPV Vaccines Aged Out No longer eligi ble based on patient's age to complete this topic MMR Vaccines Aged Out No longer eligi ble based on patient's age to complete this topic Meningococcal ACWY Vaccine Aged Out N o longer eligible based on patient's age to complete this topic Meningococcal B Vaccine Aged Out No l onger eligible based on patient's age to complete this topic RSV Immunization Patients Under 20 months Aged Out No longer eligible b ased on patient's age to complete this topic Varicella Vaccines Aged Out No longer eligible based on patient's age to complete this topic Goals Goal Patient Goal Type Associated Problems Recent Progress Patient-Stated? Author Autogenera jp Goal Care Plan Autogenerated Problem No Naomi Jeffrey Procedures Procedure Name Priority Date/Time Associated Diagnosis Comments COLONOSCOPY Routine 08/26/2025 9:18 AM EDT COLONOSCOPY Routine 08/26/2025 9:17 AM EDT from Last 3 Months Results * COLONOSCOPY (08/26/2025 9:18 AM EDT) Only the most recent of2 resultswithin the time period is included. Anatomical Region Laterality Modality Endoscopy Historical Provider GI~PROCEDURE ORDERABLES F inal Result from Last 3 Months Additional Health Concerns Active Problems Noted Date Diagnosed Date Autogenerated Problem 08/26/2025 Insurance [employer] Care Teams Karate Instructor Relationship Specialty Start Date End Date Monserrat Carey FNP [address] [place] [address] [address] [place] [address] PCP - General Internal Medicine 08/20/25
== END 2025-10-20 12:52 | disposition home or self-care (01) ==
PROVIDERS: PCP Family Medicine; Visit Provider Internal Medicine Nephrology
DX: I10 Essential (primary) hypertension (principal)
CPT/HCPCS: 99214